=== PATIENT | female | born 1980 | race Hispanic/Latino ===

== ENCOUNTER 2017-09-25 10:08 | Emergency (ER) | payer MEDICARE ==
[~2017-09-25] VITALS: Ht 149.9 cm; Wt 54.9 kg
[2017-09-25] MEDS ORDERED: IBUPROFEN 600 MG TAB PO STA (10:56)
[2017-09-25 11:15] LABS: STREPTOCOCCUS GRP A ANTIGEN POSITIVE (NEGATIVE)
[2017-09-25 11:26] LABS: INFLUENZAE A&B ANTIGEN (RAPID) POSITIVE FLU A (NEGATIVE)
== END 2017-09-25 12:26 | disposition home or self-care (01) ==
LOC: ER 10:08
DX: R50.9 Fever, unspecified (principal); J11.1 Influenza due to unidentified influenza virus with other respiratory manifestations
CPT/HCPCS: 83518; 87400; 99283

== ENCOUNTER 2018-02-27 19:55 | Emergency (ER) | payer OTHER ==
[~2018-02-27] VITALS: Ht 149.9 cm; Wt 61.2 kg
== END 2018-02-27 20:11 | disposition home or self-care (01) ==
LOC: ER 19:55
DX: R05 Cough (principal); H60.92 Unspecified otitis externa, left ear; J00 Acute nasopharyngitis [common cold]
CPT/HCPCS: 99282